=== PATIENT | male | born 1975 | race African-American/Black ===

== ENCOUNTER 2018-10-22 13:16 | Emergency (ER) | payer SELFPAY ==
[2018-10-22] MEDS ORDERED: HYDROCODONE/ACETAMINOPHEN 5-325 MG TABLET PO ONE (14:24)
--- NOTE | 2018-10-22 14:35 | ER Document Report ---
HPI - HPI Patient complains to provider of: Patient Time Seen by Provider: 10/22/18 14:23 Pain Level: 5 Notes: Patient is an otherwise healthy 43-year-old male who presents with chief complaint of left fifth toe pain. Patient reports he stubbed his toe 2 days ago. - CONSTITUTIONAL Constitutional: DENIES: Fever, Chills - MUSCULOSKELETAL Musculoskeletal: REPORTS: Extremity pain - left little toe Past Medical History - Social History Smoking Status: Unknown if Ever Smoked Family History: Reviewed & Not Pertinent Patient has suicidal ideation: No Patient has homicidal ideation: No Renal/ Medical History: Denies: Hx Peritoneal Dialysis - Immunizations Hx Diphtheria, Pertussis, Tetanus Vaccination: Yes Vertical Provider Document - CONSTITUTIONAL Notes: PHYSICAL EXAMINATION: GENERAL: Well-appearing, well-nourished and in no acute distress. HEAD: Atraumatic, normocephalic. EYES: Pupils equal round extraocular movements intact, conjunctiva are normal. ENT: Nares patent NECK: Normal range of motion LUNGS: No respiratory distress Musculoskeletal: Normal range of motion, swelling to left fifth toe. No ecchymosis or erythema noted. Cap refill less than 3 seconds, normal motor and sensation distal to injury. NEUROLOGICAL: Normal speech, normal gait. PSYCH: Normal mood, normal affect. SKIN: Warm, Dry, normal turgor, no rashes or lesions noted. - INFECTION CONTROL TRAVEL OUTSIDE OF THE [place] IN LAST 30 DAYS: No Course - Re-evaluation Re-evalutation: 10/22/18 14:35 Patient given dose of hydrocodone, x-rays pending. Minimally displaced fracture of the proximal fifth phalanx, will place patient in a walking shoe with jamie tape. Follow-up with Orth O. - Vital Signs Vital signs: Temp Pulse Resp BP Pulse Ox 98.5 F 76 18 146/97 H 100 10/22/18 13:49 10/22/18 13:49 10/22/18 13:49 10/22/18 13:49 10/22/18 13:49 Procedures - Immobilization Left foot Pre-Proc Neuro Vasc Exam: Normal Immobilizer type: Post-op shoe Performed by: PCT Post-Proc Neuro Vasc Exam: Normal Alignment checked and good: Yes Discharge - Discharge Clinical Impression: Fractured toe Qualifiers: Encounter type: initial encounter Toe: lesser toe Fracture type: closed Phalanx: unspecified phalanx Fracture alignment: nondisplaced Laterality: left Qualified Code(s): S92.505A - Nondisplaced unspecified fracture of left lesser toe(s), initial encounter for closed fracture Condition: Stable Disposition: HOME, SELF-CARE Additional Instructions: Fractured Toe You have fractured your toe. Although this fracture doesn't need a cast or splint, emergency evaluation was needed to assess the straightness of the bones and joints. Reduction ("setting") is necessary for toe fractures which are crooked or twisted. A toe fracture will heal in about three weeks. Usually, the fractured toe is taped to the next toe. The second toe acts as a moving splint to protect the broken one. Ice and elevation help during the first 48 hours. You may need crutches at first if walking is painful. When you begin walking, be careful NOT to do things that hurt. If weight bearing is not comfortable within a few days, you may require a special shoe, walking boot, or cast. Call the doctor or return at once if severe swelling, severe pain, or numbness develop in the toe, or if you suspect you may have re-injured it. Please take ibuprofen 600 mg every 6 hours. Use the pain medicine but I have provided you for severe pain only. Better on its own however I will give you information to follow-up with orthopedics if your pain does not resolve after a couple of days. Prescriptions: Hydrocodone Bit/Acetaminophen [Hydrocodon-Acetaminophen 5-325] 1 each PO Q4H PRN #8 tablet PRN Reason: Referrals: EULALIO RUIZ DO [ACTIVE STAFF] - Follow up as needed
--- NOTE | 2018-10-22 14:59 | RADIOLOGY REPORT (SQ) ---
EXAM DESCRIPTION: FOOT LEFT COMPLETE COMPLETED DATE/TIME: 10/22/2018 2:49 pm REASON FOR STUDY: left 5th toe pain after trauma COMPARISON: None. NUMBER OF VIEWS: Three views. TECHNIQUE: AP, lateral and oblique radiographic images acquired of the left foot. LIMITATIONS: None. FINDINGS: MINERALIZATION: Normal. BONES: There is a minimally displaced fracture of the proximal 5th phalanx without definite intra-art icular extension. Alignment is near anatomic. JOINTS: No effusions. Mild midfoot degenerative change and osteophytosis. SOFT TISSUES: Soft tissue swelling about the distal 5th digit. No radiopaque foreign body. OTHER: No other significant finding. IMPRESSION: Minimally displaced fracture of the proximal 5th phalanx without definite intra-articula r extension. TECHNICAL DOCUMENTATION: JOB ID: [id number] [employer]- All Rights Reserved Reading location - IP/workstation name: [email or web address]
[2018-10-22 15:22] VITALS: BP 165/93
== END 2018-10-22 15:19 | disposition home or self-care (01) ==
LOC: ER 13:16
DX: S92.505A Nondisplaced unspecified fracture of left lesser toe(s), initial encounter for closed fracture (principal); M79.675 Pain in left toe(s); W22.8XXA Striking against or struck by other objects, initial encounter
CPT/HCPCS: 99283